=== PATIENT | male | born 1965 | race Caucasian/White ===

== ENCOUNTER 2016-12-27 12:01 | Outpatient (CLI) | payer BC ==
--- NOTE | 2016-12-27 14:59 | CT ---
CT ABDOMEN AND PELVIS WITH CONTRAST: Date: 12/27/16 HISTORY: Adenocarcinoma. Feeling fatigue for 1 month. COMPARISON: None. FINDINGS: The lung bases are without effusion or pneumothorax. There is a nodule measuring 4.0 mm in the lingu la, series 2, image 7. No pericardial effusion. There is a hypodensity within hepatic segment 5 measuring 1.3 x 1.4 x 2.2 cm (trans x AP x CC). No o ther mass is seen within the liver. Aortoiliac contour is normal. Prostate is unremarkable. Urinary bladder is unremarkable. Appendix is visualized and is normal. There is an abnormal area of circumferential wall thickening of the transverse colon, series 2, imag e 37, for a length of approximately 3.5 cm. Moderate degenerative disc space height loss at L5-S1. IMPRESSION: 1. 4-5 mm nodule of the lingula. Follow-up CT chest recommended for further evaluation for lung nod ules. 2. Hypodense subcapsular mass right lobe of the liver, segment 5, measuring 1.3 x 1.3 x 2.2 cm, con cerning for a metastatic focus. 3. Focal area of circumferential wall thickening of the transverse colon, best seen on series 2, im age 36, for a length of 3.4 cm concerning for the patient's primary given the history of colon adeno carcinoma. CODE T. POS: [facility]
== END 2016-12-27 12:02 | disposition home or self-care (01) ==
LOC: BURCT 12:01
PROVIDERS: ATTEND Internal Medicine Gastroenterology
DX: C18.9 Malignant neoplasm of colon, unspecified (principal); R16.0 Hepatomegaly, not elsewhere classified; K63.89 Other specified diseases of intestine; R91.1 Solitary pulmonary nodule
CPT/HCPCS: 74177

== ENCOUNTER 2018-03-10 12:50 | Emergency (ER) | payer BC ==
[2018-03-10 13:08] LABS: #Basophils 0.1 thou/uL (0.0-0.2); #Eosinphils 0.1 thou/uL (0.0-0.7); #Monocytes 0.6 thou/uL (0.11-0.59); #Neutrophils 3.6 thou/uL (1.40-6.50); %Basophils 1.6 % (0.0-1.0); %Eosinophils 2.3 % (0.0-10.0); %Lymphocytes 30.9 % (21.0-51.0); %Monocytes 9.8 % (0.0-10.0); %Neutrophils 55.4 % (42.0-75.0); Hemoglobin 14.9 g/dL (14.0-18.0); Mean Corpuscular HGB CONC 35.7 g/dL (32.0-36.0); Mean Platelet Volume 9.8 fL (7.4-10.4); Platelet Count 214 thou/uL (130-400); RBC Distribution Width 10.9 % (11.5-14.5); Red Blood Cell (RBC) Count 4.81 mill/uL (4.70-6.10); White Blood Cell (WBC) Count 6.5 thou/uL (4.8-10.8)
[2018-03-10 13:23] LABS: ALT (SGPT) 33 U/L (8-55); AST (SGOT) 26 U/L (5-34); Albumin 4.5 g/dL (3.5-5.0); Alkaline Phosphatase 86 U/L (40-150); Anion Gap 14 mmol/L (10-20); BUN (Urea Nitrogen) 17 mg/dL (8.4-25.7); Bilirubin, Total 0.6 mg/dL (0.2-1.2); Calc. Creatinine Clearance 0 mL/min (70-130); Calcium 9.8 mg/dL (7.8-10.44); Carbon Dioxide 25 mmol/L (22-29); Chloride 106 mmol/L (98-107); Estimated GFR-MDRD 86; Globulin 2.7 g/dL (2.4-3.5); Glucose 99 mg/dL (70-105); Lipase 22 U/L (8-78); Potassium 3.6 mmol/L (3.5-5.1); Protein, Total 7.2 g/dL (6.0-8.3); Sodium 141 mmol/L (136-145)
[2018-03-10 13:24] LABS: CKMB 6.1 ng/mL (0-6.6); Troponin I Less than 0.010 ng/mL (< 0.028)
[2018-03-10] MEDS ORDERED: Metoprolol Tartrate 5 MG/5 ML VIAL ONE (13:46)
[2018-03-10] MEDS ORDERED: Nitroglycerin 0.4 MG TAB (25 Tab Bottle) ONE (13:46)
[2018-03-10] MEDS ORDERED: Enoxaparin Sodium 100 MG/ML SYRINGE ONE (13:46)
--- NOTE | 2018-03-10 20:07 | RAD ---
PORTABLE CHEST: 03/10/2018 1251 HOURS COMPARISON: No prior films are available for comparison. FINDINGS: This portable film, at 1251 hours, shows slight cardiac enlargement, considering the AP projection an d body habitus. There is no vascular congestion, edema, or pleural effusion. The lungs are clear. The trachea is midline. IMPRESSION: Minimal cardiac enlargement. POS: HOME
== END 2018-03-10 15:36 | disposition short-term general hospital (02) ==
LOC: BURERS 12:50
DX: I25.10 Atherosclerotic heart disease of native coronary artery without angina pectoris (principal); I10 Essential (primary) hypertension; F41.9 Anxiety disorder, unspecified; Z79.899 Other long term (current) drug therapy
CPT/HCPCS: 71045; 80053; 82553; 83690; 83880; 84484; 85025; 93005; 94760; 96372; 96374; J1650

== ENCOUNTER 2021-08-02 11:43 | Emergency (ER) | payer BC ==
[2021-08-02 12:05] LABS: #Basophils 0.1 thou/uL (0.0-0.2); #Eosinphils 0.2 thou/uL (0.0-0.7); #Lymphocytes 1.5 thou/uL (1.20-3.40); #Monocytes 0.6 thou/uL (0.11-0.59); #Neutrophils 4.1 thou/uL (1.40-6.50); %Basophils 1.3 % (0.0-1.0); %Eosinophils 2.6 % (0.0-10.0); %Lymphocytes 23.4 % (21.0-51.0); %Monocytes 9.3 % (0.0-10.0); %Neutrophils 63.3 % (42.0-75.0); Hemoglobin 14.8 g/dL (14.0-18.0); Mean Corpuscular HGB CONC 34.4 g/dL (32.0-36.0); Mean Corpuscular Hemoglobin 31.4 pg (27.0-31.0); Mean Corpuscular Volume 91.2 fL (78.0-98.0); Mean Platelet Volume 8.7 fL (7.4-10.4); Platelet Count 254 thou/uL (130-400); RBC Distribution Width 11.3 % (11.5-14.5); Red Blood Cell (RBC) Count 4.72 mill/uL (4.70-6.10); White Blood Cell (WBC) Count 6.5 thou/uL (4.8-10.8)
[2021-08-02 12:23] LABS: ALT (SGPT) 42 U/L (8-55); AST (SGOT) 37 U/L (5-34); Albumin 4.2 g/dL (3.5-5.0); Alkaline Phosphatase 103 U/L (40-110); Anion Gap 14 mmol/L (10-20); BUN (Urea Nitrogen) 15 mg/dL (8.4-25.7); Bilirubin, Total 0.5 mg/dL (0.2-1.2); Calc. Creatinine Clearance 0 mL/min (70-130); Calcium 9.2 mg/dL (7.8-10.44); Carbon Dioxide 25 mmol/L (22-29); Chloride 105 mmol/L (98-107); Globulin 2.6 g/dL (2.4-3.5); Glucose 107 mg/dL (70-105); Potassium 3.4 mmol/L (3.5-5.1); Protein, Total 6.8 g/dL (6.0-8.3); Sodium 141 mmol/L (136-145)
[2021-08-02] MEDS ORDERED: Aspirin Chewable 81 MG TAB ONE (14:26)
[2021-08-02 16:15] LABS: Troponin I Less than 0.010 ng/mL (< 0.028)
[2021-08-03 12:44] LABS: SARS-CoV-2 PCR by NAA Not Detected (NotDetected)
== END 2021-08-02 16:02 | disposition short-term general hospital (02) ==
LOC: BURERS 11:43
DX: R07.2 Precordial pain (principal); Z20.822 Contact with and (suspected) exposure to COVID-19; I10 Essential (primary) hypertension
CPT/HCPCS: 71045; 80053; 83880; 84484; 85025; 93005; U0003; U0005

== ENCOUNTER 2022-02-06 10:42 | Emergency (ER) | payer BC ==
[2022-02-06] MEDS ORDERED: cefTRIAXone\\ROCEPHIN 1 GM VIAL ONE (11:17)
[2022-02-06] MEDS ORDERED: Ondansetron PF 4 MG/2 ML Vial ONE (11:17)
[2022-02-06] MEDS ORDERED: cefTRIAXone\\ROCEPHIN 2 GM VIAL ONE (11:18)
[2022-02-06 11:30] LABS: #Basophils 0.1 thou/uL (0.0-0.2); #Lymphocytes 0.3 thou/uL (1.20-3.40); #Monocytes 1.1 thou/uL (0.11-0.59); #Neutrophils 12.9 thou/uL (1.40-6.50); %Basophils 0.6 % (0.0-1.0); %Eosinophils 0.1 % (0.0-10.0); %Monocytes 7.4 % (0.0-10.0); Hemoglobin 12.4 g/dL (14.0-18.0); Mean Corpuscular HGB CONC 36.2 g/dL (32.0-36.0); Mean Corpuscular Hemoglobin 31.6 pg (27.0-31.0); Mean Corpuscular Volume 87.3 fL (78.0-98.0); Mean Platelet Volume 7.8 fL (7.4-10.4); Platelet Count 183 thou/uL (130-400); RBC Distribution Width 11.5 % (11.5-14.5); Red Blood Cell (RBC) Count 3.93 mill/uL (4.70-6.10); White Blood Cell (WBC) Count 14.4 thou/uL (4.8-10.8)
[2022-02-06 11:42] LABS: ALT (SGPT) 44 U/L (8-55); AST (SGOT) 40 U/L (5-34); Albumin 3.5 g/dL (3.5-5.0); Alkaline Phosphatase 192 U/L (40-110); Anion Gap 15 mmol/L (10-20); BUN (Urea Nitrogen) 27 mg/dL (8.4-25.7); Bilirubin, Total 1.5 mg/dL (0.2-1.2); Calc. Creatinine Clearance 0 mL/min (70-130); Carbon Dioxide 21 mmol/L (22-29); Chloride 98 mmol/L (98-107); Estimated GFR 39; Glucose 136 mg/dL (70-105); Potassium 3.4 mmol/L (3.5-5.1); Protein, Total 6.5 g/dL (6.0-8.3); Sodium 131 mmol/L (136-145)
[2022-02-06 12:31] LABS: CKMB 0.7 ng/mL (0-6.6)
[2022-02-06] MEDS ORDERED: Aspirin Chewable 81 MG TAB ONE (13:08)
[2022-02-06 13:56] LABS: SARS-CoV-2 NAA Rapid Test Not Detected (NotDetected)
[2022-02-06 15:00] LABS: Bilirubin Negative (Negative); Blood, Urine Trace (Negative); Clarity Slightly Cloudy (Clear); Glucose, Urine (Dipstick) Negative (Negative); Ketone, Urine Negative (Negative); Leukocyte Negative (Negative); Nitrite Negative (Negative); Protein, Urine (Dipstick) 30 mg/dL (Neg-Trace); Urobilinogen 0.2 mg/dL (Less than 2); pH, Urine 5.5 (5.0-9.0)
[2022-02-06 15:01] LABS: Specific Gravity, Urine 1.005 (1.002-1.036)
[2022-02-06 15:11] LABS: Bacteria/HPF Rare-Few HPF (None Seen); RBC/HPF 0-3 HPF (0-3); Squamous Epithelial None Seen HPF (0-3); WBC/HPF None Seen HPF (0-3)
== END 2022-02-06 15:25 | disposition short-term general hospital (02) ==
LOC: BURERS 10:42
DX: E86.0 Dehydration (principal); R77.8 Other specified abnormalities of plasma proteins; R50.9 Fever, unspecified; I10 Essential (primary) hypertension; Z20.822 Contact with and (suspected) exposure to COVID-19
CPT/HCPCS: 36415; 71045; 80053; 81003; 81015; 82553; 83605; 84484; 85025; 87040; 87077; 87086; 87149; 87186; 87804; 96361; 96365; 96366; 96375; J0696; J2405; U0002

== ENCOUNTER 2022-09-03 07:41 | Emergency (ER) | payer BC ==
[2022-09-03 08:47] LABS: #Basophils 0.2 thou/uL (0.0-0.2); #Eosinphils 0.8 thou/uL (0.0-0.7); #Lymphocytes 1.3 thou/uL (1.20-3.40); #Monocytes 1.1 thou/uL (0.11-0.59); #Neutrophils 8.1 thou/uL (1.40-6.50); %Basophils 1.7 % (0.0-1.0); %Eosinophils 6.9 % (0.0-10.0); %Monocytes 9.5 % (0.0-10.0); %Neutrophils 70.9 % (42.0-75.0); Hemoglobin 12.5 g/dL (14.0-18.0); Mean Corpuscular HGB CONC 33.9 g/dL (32.0-36.0); Mean Corpuscular Hemoglobin 29.9 pg (27.0-31.0); Mean Corpuscular Volume 88.2 fl (78.0-98.0); Mean Platelet Volume 6.7 fL (7.4-10.4); Platelet Count 249 10x3/uL (130-400); RBC Distribution Width 11.3 % (11.5-14.5); Red Blood Cell (RBC) Count 4.17 mill/uL (4.70-6.10); White Blood Cell (WBC) Count 11.5 10x3/uL (4.8-10.8)
[2022-09-03 08:57] LABS: ALT (SGPT) 59 U/L (8-55); AST (SGOT) 50 U/L (5-34); Alkaline Phosphatase 160 U/L (40-110); Anion Gap 15 mmol/L (10-20); BUN (Urea Nitrogen) 35 mg/dL (8.4-25.7); Bilirubin, Total 0.7 mg/dL (0.2-1.2); CK (CPK) 124 U/L (30-200); CRP (Inflammatory) 9.43 mg/dL (= or < 0.5); Calc. Creatinine Clearance 0 mL/min (70-130); Calcium 9.3 mg/dL (7.8-10.44); Carbon Dioxide 24 mmol/L (22-29); Chloride 107 mmol/L (98-107); Estimated GFR 27; Globulin 3.9 g/dL (2.4-3.5); Glucose 115 mg/dL (70-105); Lipase 82 U/L (8-78); Magnesium 2.1 mg/dL (1.6-2.6); Protein, Total 7.9 g/dL (6.0-8.3); Sodium 143 mmol/L (136-145)
[2022-09-03 09:15] LABS: Bilirubin Negative (Negative); Blood, Urine Trace (Negative); Clarity Clear (Clear); Glucose, Urine (Dipstick) Negative (Negative); Ketone, Urine Negative (Negative); Leukocyte Negative (Negative); Nitrite Negative (Negative); Protein, Urine (Dipstick) Negative (Neg-Trace); Urobilinogen 0.2 mg/dL (Less than 2)
[2022-09-03 09:30] LABS: Bacteria/HPF Rare-Few HPF (None Seen); Squamous Epithelial None Seen HPF (0-3)
[2022-09-03 09:31] LABS: RBC/HPF 0-3 HPF (0-3)
== END 2022-09-03 10:04 | disposition short-term general hospital (02) ==
LOC: BURERS 07:41
DX: S37.009A Unspecified injury of unspecified kidney, initial encounter (principal); R50.9 Fever, unspecified; I10 Essential (primary) hypertension; Z79.899 Other long term (current) drug therapy; X58.XXXA Exposure to other specified factors, initial encounter
CPT/HCPCS: 36415; 71045; 80053; 81003; 81015; 82550; 83605; 83690; 83735; 84484; 85025; 85610; 85730; 86140; 87040; 87086; 93005; 94760

== ENCOUNTER 2023-11-13 15:41 | Emergency (ER) | payer BC ==
[2023-11-13] MEDS ORDERED: Sodium Bicarb 50 mEq/50 ML VIAL ONE (15:53)
[2023-11-13 16:11] LABS: #Basophils 0.1 thou/uL (0.0-0.2); #Eosinphils 0.3 thou/uL (0.0-0.7); #Lymphocytes 0.6 thou/uL (1.20-3.40); #Neutrophils 5.1 thou/uL (1.40-6.50); %Basophils 1.8 % (0.0-1.0); %Lymphocytes 7.9 % (21.0-51.0); %Neutrophils 72.3 % (42.0-75.0); Hematocrit 37.3 % (42.0-52.0); Hemoglobin 12.8 g/dL (14.0-18.0); Mean Corpuscular HGB CONC 34.4 g/dL (32.0-36.0); Mean Corpuscular Hemoglobin 33.2 pg (27.0-31.0); Mean Corpuscular Volume 96.5 fl (78.0-98.0); Mean Platelet Volume 7.3 fL (7.4-10.4); Platelet Count 274 10x3/uL (130-400); RBC Distribution Width 13.4 % (11.5-14.5); Red Blood Cell (RBC) Count 3.86 mill/uL (4.70-6.10); White Blood Cell (WBC) Count 7.1 10x3/uL (4.8-10.8)
[2023-11-13 16:16] LABS: ALT (SGPT) 90 U/L (8-55); AST (SGOT) 72 U/L (5-34); Albumin 3.6 g/dL (3.5-5.0); Alkaline Phosphatase 874 U/L (40-110); Anion Gap 12 mmol/L (10-20); BUN (Urea Nitrogen) 33 mg/dL (8.4-25.7); Bilirubin, Total 4.5 mg/dL (0.2-1.2); Calc. Creatinine Clearance 0 mL/min (70-130); Carbon Dioxide 13 mmol/L (22-29); Chloride 116 mmol/L (98-107); Estimated GFR 62; Globulin 3.5 g/dL (2.4-3.5); Glucose 107 mg/dL (70-105); Magnesium 2.3 mg/dL (1.6-2.6); Potassium 3.7 mmol/L (3.5-5.1); Protein, Total 7.1 g/dL (6.0-8.3); Sodium 137 mmol/L (136-145)
[2023-11-13 18:26] LABS: Anion Gap 11 mmol/L (10-20); BUN (Urea Nitrogen) 32 mg/dL (8.4-25.7); Calc. Creatinine Clearance 0 mL/min (70-130); Calcium 8.9 mg/dL (7.8-10.44); Carbon Dioxide 14 mmol/L (22-29); Chloride 116 mmol/L (98-107); Estimated GFR 79; Glucose 116 mg/dL (70-105); Potassium 3.5 mmol/L (3.5-5.1); Sodium 137 mmol/L (136-145)
== END 2023-11-13 18:50 | disposition home or self-care (01) ==
LOC: BURERS 15:41
DX: N25.89 Other disorders resulting from impaired renal tubular function (principal); I10 Essential (primary) hypertension
CPT/HCPCS: 36415; 80053; 83735; 85025; 99283

== ENCOUNTER 2023-12-20 07:18 | Emergency (ER) | payer BC ==
[2023-12-20] MEDS ORDERED: Morphine 4 MG/ML VIAL ONE (07:54)
[2023-12-20] MEDS ORDERED: Ondansetron PF 4 MG/2 ML Vial ONE (07:54)
[2023-12-20 08:17] LABS: Band 1 % (5-11); Eosinophils 3 % (0-10); Hematocrit 40.5 % (42.0-52.0); Hemoglobin 12.8 g/dL (14.0-18.0); Lymphocytes 8 % (21-51); MDiff Complete? YES; Mean Corpuscular HGB CONC 31.7 g/dL (32.0-36.0); Mean Corpuscular Hemoglobin 31.6 pg (27.0-31.0); Monocytes 11 % (0-10); Neutrophil 76 % (42-75); Platelet Count 330 10x3/uL (130-400); RBC Distribution Width 15.4 % (11.5-14.5); Red Blood Cell (RBC) Count 4.05 mill/uL (4.70-6.10)
[2023-12-20 08:22] LABS: White Blood Cell (WBC) Count 11.4 10x3/uL (4.8-10.8)
[2023-12-20 08:25] LABS: INR-International Normal Ratio 1.3; PTT 29.7 sec (22.9-36.1); Prothrombin Time 15.9 sec (12.0-14.7)
[2023-12-20 08:28] LABS: ALT (SGPT) 49 U/L (8-55); AST (SGOT) 79 U/L (5-34); Albumin 2.7 g/dL (3.5-5.0); Alkaline Phosphatase 688 U/L (40-110); Anion Gap 13 mmol/L (10-20); BUN (Urea Nitrogen) 39 mg/dL (8.4-25.7); Bilirubin, Total 10.3 mg/dL (0.2-1.2); Calc. Creatinine Clearance 0 mL/min (70-130); Calcium 10.8 mg/dL (7.8-10.44); Chloride 112 mmol/L (98-107); Estimated GFR 59; Globulin 4.5 g/dL (2.4-3.5); Glucose 90 mg/dL (70-105); Lipase 10 U/L (8-78); Magnesium 2.4 mg/dL (1.6-2.6); Potassium 4.1 mmol/L (3.5-5.1); Protein, Total 7.2 g/dL (6.0-8.3); Sodium 130 mmol/L (136-145)
[2023-12-20 08:31] LABS: Troponin I 0.038 ng/mL (< 0.028)
[2023-12-20 08:34] LABS: Carbon Dioxide 9 mmol/L (22-29); Critical Call Chemistry NUR.MB22@0833
[2023-12-20 08:36] LABS: SARS-CoV-2 E Target Negative; SARS-CoV-2 N2 Target Negative; SARS-CoV-2 NAA Rapid Test Not Detected (NotDetected); SARS-CoV-2 RdRP gene Negative
[2023-12-20] MEDS ORDERED: Aspirin Chewable 81 MG TAB ONE (08:58)
[2023-12-20] MEDS ORDERED: Piperacillin/Tazobactam 4.5 GM VIAL ONE (08:58)
[2023-12-20] MEDS ORDERED: Sodium Bicarb 50 mEq/50 ML VIAL ONE (09:06)
[2023-12-20] MEDS ORDERED: Ketorolac Tromethamine 30 MG (1 mL) VIAL ONE (09:35)
[2023-12-20] MEDS ORDERED: Morphine 2 MG/ML VIAL ONE (09:35)
[2023-12-20] MEDS ORDERED: Iopamidol 370 76% 100 ML VIAL ONE (10:43)
== END 2023-12-20 12:08 | disposition short-term general hospital (02) ==
LOC: BURERS 07:18
DX: E80.6 Other disorders of bilirubin metabolism (principal); K83.1 Obstruction of bile duct; I12.9 Hypertensive chronic kidney disease with stage 1 through stage 4 chronic kidney disease, or unspecified chronic kidney disease; N18.9 Chronic kidney disease, unspecified; E87.20 Acidosis, unspecified; R79.89 Other specified abnormal findings of blood chemistry; C78.5 Secondary malignant neoplasm of large intestine and rectum
CPT/HCPCS: 36415; 71045; 71275; 80053; 83605; 83690; 83735; 83880; 84484; 85025; 85610; 85730; 87040; 87077; 87149; 87186; 93005; 94760; 96361; 96365; 96366; 96367; 96375; 96376; J1885; J2272; J2405; J2543; Q9967; U0002